=== PATIENT | male | born 1965 | race Caucasian/White ===

== ENCOUNTER 2021-11-18 09:23 | Emergency (ER) | payer BC ==
[~2021-11-18] VITALS: Ht 172.7 cm; Wt 109.1 kg
[2021-11-18 10:23] LABS: BASO # 0.01 K/mm3 (0.02-0.10); HEMATOCRIT 44.3 % (42.0-52.0); HEMOGLOBIN 14.9 g/dL (13.5-18.0); LYMPH# 1.14 K/mm3 (1.50-4.00); MEAN CELL VOLUME 86 fl (78-100); MEAN CORPUSCULAR HEMOGLOBIN 29 pg (27-31); MEAN CORPUSCULAR HGB CONC 34 g/dL (33-37); MEAN PLATELET VOLUME 9.7 fl (7.4-10.4); MONO # 0.36 K/mm3 (0.20-0.80); NEU # 4.69 K/mm3 (1.40-6.50); PLATELET COUNT 203 K/mm3 (130-400); RED BLOOD COUNT 5.15 M/mm3 (4.20-5.60); RED CELL DISTRIBUTION WIDTH 12.7 % (11.5-14.5); WHITE BLOOD COUNT 6.2 K/mm3 (4.8-10.8)
[2021-11-18 10:34] LABS: CALCIUM 8.8 mg/dL (8.3-10.5)
[2021-11-18] MEDS ORDERED: GUAIFEN-CODEINE5 ML PO (12:28)
[2021-11-18] MEDS ORDERED: DEXAMETHASONE6 M1 PO (12:28)
[2021-11-18] MEDS ORDERED: MORGIDOX 1X100100 MG PO (12:28)
[2021-11-18 12:34] VITALS: BP 139/85
== END 2021-11-18 12:48 | disposition home or self-care (01) ==
LOC: ED 09:23
PROVIDERS: Family Medicine
DX: U07.1 COVID-19 (principal); J12.82 Pneumonia due to coronavirus disease 2019; Z73.0 Burn-out